=== PATIENT | male | born 1980 | race Caucasian/White ===

== ENCOUNTER 2018-08-24 03:00 | Emergency (ER) | payer SELFPAY ==
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
== END 2018-08-24 03:10 | disposition home or self-care (01) ==
LOC: VM.ED 03:00
DX: F10.10 Alcohol abuse, uncomplicated (principal); F17.210 Nicotine dependence, cigarettes, uncomplicated
CPT/HCPCS: 99283; 99283-GF